=== PATIENT | male | born 1960 | race African-American/Black ===

== ENCOUNTER 2024-12-09 10:56 | Emergency (ER) | payer BC ==
[~2024-12-09 10:56] MED LIST: Iopamidol-370 76% 500 ML MDV (1 ML CHARGE) ONE
[2024-12-09 12:17] LABS: #Basophils 0.04 10x3/uL (0.0-0.2); #Eosinophils 0.06 10x3/uL (0.0-0.7); #Monocytes 0.45 10x3/uL (0.11-0.59); #Neutrophils 3.58 10x3/uL (1.40-6.50); %Basophils 0.8 % (0.0-1.0); %Eosinophils 1.2 % (0.0-10.0); %Lymphocytes 19.2 % (21.0-51.0); %Monocytes 8.7 % (0.0-10.0); %Neutrophils 69.5 % (42.0-75.0); Hematocrit 36.6 % (42.0-52.0); Hemoglobin 12.5 g/dL (14.0-18.0); Mean Corpuscular Hemoglobin 26.5 pg (27.0-31.0); Mean Corpuscular Volume 77.5 fL (78.0-98.0); Platelet Count 417 10x3/uL (130-400); Red Blood Cell (RBC) Count 4.72 mill/uL (4.70-6.10); White Blood Cell (WBC) Count 5.15 10x3/uL (4.8-10.8)
[2024-12-09] MEDS ORDERED: Dexamethasone 10 MG/ML VIAL ONE (12:17)
[2024-12-09] MEDS ORDERED: Ketorolac Tromethamine 30 MG (1 mL) VIAL ONE (12:17)
[2024-12-09 12:24] LABS: Bacteria/HPF None Seen HPF (None Seen); CAUTI Indications for Culture Pelvic or flank pain; Glucose, Urine (Dipstick) Normal (Negative); Leukocyte 25 Leu/uL (Negative); Protein, Urine (Dipstick) 20 mg/dL (Neg-Trace); RBC/HPF 0-3 HPF (0-3); Specific Gravity, Urine 1.007 (1.002-1.036)
[2024-12-09 12:26] LABS: Urine Culture Reflex No No
[2024-12-09 12:43] LABS: ALT (SGPT) 21 U/L (Less than 45); AST (SGOT) 22 U/L (11-34); Albumin 3.9 g/dL (3.1-4.5); Alkaline Phosphatase 101 U/L (40-110); Anion Gap 17 mmol/L (10-20); BUN (Urea Nitrogen) 10 mg/dL (8.4-25.7); Bilirubin, Total 0.7 mg/dL (0.3-1.2); Calc. Creatinine Clearance 0 mL/min (70-130); Calcium 9.2 mg/dL (7.8-10.44); Carbon Dioxide 24 mmol/L (23-31); Chloride 90 mmol/L (98-107); Globulin 3.2 g/dL (2.4-3.5); Glucose 98 mg/dL (80-115); Potassium 3.9 mmol/L (3.5-5.1); Sodium 127 mmol/L (136-145)
== END 2024-12-09 14:58 | disposition home or self-care (01) ==
LOC: ERS 10:56
DX: R22.1 Localized swelling, mass and lump, neck (principal)
CPT/HCPCS: 70491; 80053; 81001; 85025; 87081; 87428; 87430; 96374; 96375; J1100; J1885

== ENCOUNTER 2025-01-20 09:10 | Outpatient (CLI) | payer BC | END 2025-01-20 09:11 | disposition home or self-care (01) | LOC: MRI 09:10 | PROVIDERS: ATTEND Radiology Radiation Oncology | DX: C10.3 Malignant neoplasm of posterior wall of oropharynx (principal) | CPT/HCPCS: 70553; 76376 ==

== ENCOUNTER 2025-01-26 10:15 | Outpatient (CLI) | payer BC | END 2025-01-26 10:16 | disposition home or self-care (01) | LOC: PET 10:15 | PROVIDERS: ATTEND Radiology Radiation Oncology | DX: C10.3 Malignant neoplasm of posterior wall of oropharynx (principal); J39.2 Other diseases of pharynx; S22.43XA Multiple fractures of ribs, bilateral, initial encounter for closed fracture | CPT/HCPCS: 78815; A9552 ==

== ENCOUNTER 2025-02-01 09:40 | Outpatient (CLI) | payer BC ==
[2025-02-01 11:22] LABS: #Basophils 0.04 10x3/uL (0.0-0.2); #Eosinophils 0.15 10x3/uL (0.0-0.7); #Monocytes 0.41 10x3/uL (0.11-0.59); #Neutrophils 1.92 10x3/uL (1.40-6.50); %Basophils 1.1 % (0.0-1.0); %Eosinophils 4.2 % (0.0-10.0); %Lymphocytes 28.5 % (21.0-51.0); %Monocytes 11.6 % (0.0-10.0); %Neutrophils 54.3 % (42.0-75.0); Hematocrit 40.0 % (42.0-52.0); Hemoglobin 12.7 g/dL (14.0-18.0); Mean Corpuscular Hemoglobin 25.4 pg (27.0-31.0); Mean Corpuscular Volume 80.0 fL (78.0-98.0); Platelet Count 360 10x3/uL (130-400); Red Blood Cell (RBC) Count 5.00 mill/uL (4.70-6.10); White Blood Cell (WBC) Count 3.54 10x3/uL (4.8-10.8)
[2025-02-01 11:31] LABS: INR-International Normal Ratio 1.0; Prothrombin Time 13.4 sec (12.0-14.7)
[2025-02-01 11:41] LABS: Anion Gap 14 mmol/L (10-20); BUN (Urea Nitrogen) 10 mg/dL (8.4-25.7); Calc. Creatinine Clearance 0 mL/min (70-130); Calcium 9.9 mg/dL (7.8-10.44); Carbon Dioxide 29 mmol/L (23-31); Chloride 98 mmol/L (98-107); Glucose 107 mg/dL (80-115); Potassium 3.7 mmol/L (3.5-5.1); Sodium 137 mmol/L (136-145)
== END 2025-02-01 09:41 | disposition home or self-care (01) ==
LOC: LABBT 09:40
PROVIDERS: ATTEND Student in an Organized Health Care Education/Training Program
DX: Z01.818 Encounter for other preprocedural examination (principal); C10.9 Malignant neoplasm of oropharynx, unspecified
CPT/HCPCS: 80048; 85025; 85610; 93005; 93010

== ENCOUNTER 2025-02-03 05:30 | Day surgery (SDC) | payer BC ==
[2025-02-01 09:54] VITALS: BMI 20.8
[2025-02-03] MEDS ORDERED: CEFAZOLIN 2 GM VIAL ONE (06:37)
[2025-02-03] MEDS ORDERED: Bupivacaine 0.25% HCL 30 ML VIAL ONE (06:39)
[2025-02-03] MEDS ORDERED: PHENYLEPHRINE-NS 100 MCG/ML 10 ML SYRINGE ONE (07:07)
[2025-02-03] MEDS ORDERED: Glycopyrrolate 0.2 MG/ML 5 ML SYRINGE ONE (07:07)
[2025-02-03] MEDS ORDERED: Rocuronium Bromide 10 MG/ML (10ML VIAL) ONE (07:07)
[2025-02-03] MEDS ORDERED: PROPOFOL 200 MG/20 ML VIAL ONE (08:59)
[2025-02-03] MEDS ORDERED: Ondansetron PF 4 MG/2 ML Vial ONE (09:16)
[2025-02-03] MEDS ORDERED: Metoprolol Tartrate 5 MG (5 mL) VIAL ONE (09:16)
[2025-02-03] MEDS ORDERED: SUGAMMADEX SODIUM 200 MG/2 ML VIAL ONE (09:32)
[2025-02-03] MEDS ORDERED: NOREPINEPHRINE 8 MG/250 ML-D5W 250 ML ONE (10:25)
== END 2025-02-03 16:43 | disposition home or self-care (01) ==
LOC: SDC 05:30
PROVIDERS: ATTEND Student in an Organized Health Care Education/Training Program
PROC: 0DH64UZ Insertion of Feeding Device into Stomach, Percutaneous Endoscopic Approach (ICD-10-PCS; principal; 2025-02-03)
DX: C10.9 Malignant neoplasm of oropharynx, unspecified (principal)
CPT/HCPCS: 71045; C1788; J0169; J0665; J1100; J1642; J2250; J2405; J2704; J3010

== ENCOUNTER 2025-02-18 05:40 | Emergency (ER) | payer BC ==
[2025-02-18 06:54] LABS: Hematocrit 36.6 % (42.0-52.0); Hemoglobin 12.2 g/dL (14.0-18.0); Mean Corpuscular Hemoglobin 25.4 pg (27.0-31.0); Mean Corpuscular Volume 76.3 fL (78.0-98.0); Platelet Count 134 10x3/uL (130-400); Red Blood Cell (RBC) Count 4.80 mill/uL (4.70-6.10); White Blood Cell (WBC) Count 2.65 10x3/uL (4.8-10.8)
[2025-02-18 07:11] LABS: ALT (SGPT) 39 U/L (Less than 45); AST (SGOT) 18 U/L (11-34); Albumin 3.6 g/dL (3.1-4.5); Alkaline Phosphatase 100 U/L (40-110); Anion Gap 18 mmol/L (10-20); BUN (Urea Nitrogen) 26 mg/dL (8.4-25.7); Bilirubin, Total 0.8 mg/dL (0.3-1.2); Calc. Creatinine Clearance 0 mL/min (70-130); Calcium 9.4 mg/dL (7.8-10.44); Carbon Dioxide 26 mmol/L (23-31); Chloride 91 mmol/L (98-107); Globulin 3.4 g/dL (2.4-3.5); Glucose 117 mg/dL (80-115); Lipase 18 U/L (8-78); Potassium 3.6 mmol/L (3.5-5.1); Sodium 131 mmol/L (136-145)
[2025-02-18 07:53] LABS: Burr Cells SLIGHT = 2-5 cells HPF (0-1); Microcytosis SLIGHT = 6-15 cells HPF (0-5); Platelet Adequacy Comment Platelets Normal; Polychromasia SLIGHT = 2-3 cells HPF (0-2); Smudge Cells 0.9 %; Target Cells SLIGHT = 2-5 cells HPF (0-1); Toxic Granulation SLIGHT
[2025-02-18 08:25] LABS: Bacteria/HPF 4+ HPF (None Seen); CAUTI Indications for Culture Pelvic or flank pain; Glucose, Urine (Dipstick) Normal (Negative); Leukocyte 500 Leu/uL (Negative); Protein, Urine (Dipstick) 30 mg/dL (Neg-Trace); RBC/HPF 21-50 HPF (0-3); Specific Gravity, Urine 1.020 (1.002-1.036); WBC/HPF Greater than 50 HPF (0-3)
[2025-02-18 08:27] LABS: Urine Culture Reflex Yes Yes
[2025-02-18] MEDS ORDERED: cefTRIAXone (ROCEPHIN) 1 GM VIAL ONE (09:04)
== END 2025-02-18 09:17 | disposition home or self-care (01) ==
LOC: ERS 05:40
DX: N39.0 Urinary tract infection, site not specified (principal); R19.7 Diarrhea, unspecified
CPT/HCPCS: 74177; 80053; 81001; 83690; 85025; 87077; 87086; 96361; 96374; J0696